=== PATIENT | female | born 1960 | race Caucasian/White ===

== ENCOUNTER 2017-03-28 21:30 | Emergency (ER) | payer OTHER ==
[~2017-03-28] VITALS: Ht 160 cm; Wt 58.5 kg
[~2017-03-28 21:30] MED LIST: BUDE9TAB PO; CETI10CA PO; HYDR25SU21 RC; LEVO50TA5 PO; LEVO75TA5 PO; MESA1.2T PO; MESA1.2T PR; PRED10TA PO; SERT50TA PO; [UNRECOGNIZED DRUG - OTHER]
[2017-03-28 23:15] LABS: PATH.CAST-FLAG NOT PRESENT; SPERM-FLAG NOT PRESENT; SRC-FLAG NOT PRESENT; XTAL-FLAG NOT PRESENT; YLC-FLAG NOT PRESENT
[2017-03-28] MEDS ORDERED: SODIUM CHLORIDE 0.9% 1,000ML IVBOLUS ONE (23:30)
[2017-03-28 23:33] LABS: ASPARTATE AMINO TRANSFERASE 21 U/L (15-37); BLOOD UREA NITROGEN 9 mg/dL (7-18)
[2017-03-29] MEDS ORDERED: OMNIPAQUE 350 MG/ML, 100ML BOTTLE ONE (00:13)
[2017-03-29] MEDS ORDERED: metroNIDAZOLE 500 MG TABLET PO ONE (01:00)
[2017-03-29] MEDS ORDERED: CIPROFLOXACIN/PMX 400MG/200ML 200 ML IV ONE (01:00)
[2017-03-29] MEDS ORDERED: CIPROFLOXACIN/PMX 400MG/200ML 200 ML ONE (01:20)
[2017-03-29] MEDS ORDERED: metroNIDAZOLE 500 MG TABLET ONE (02:14)
[2017-03-29 02:34] VITALS: BP 122/68
== END 2017-03-29 02:37 | disposition home or self-care (01) ==
LOC: ED 23:59
DX: A09 Infectious gastroenteritis and colitis, unspecified (principal); Z88.1 Allergy status to other antibiotic agents; Z88.5 Allergy status to narcotic agent
CPT/HCPCS: 36415; 74177; 80053; 81001; 83690; 85025; 87324; 89055; 96361; 96365; 99285; J0744; J7030; Q9967